=== PATIENT | female | born 1930 | race Caucasian/White ===

== ENCOUNTER 2020-10-17 20:52 | Emergency (ER) | payer MEDICARE, MEDICAID ==
[~2020-10-17] VITALS: Ht 134.6 cm; Wt 59.0 kg
[~2020-10-17 20:52] MED LIST: ACET-3161 PO; CLOP-31; CLOP-31 PO; FAMO-133; GABA100C PO; MECL-159 PO; OMEP20CA14; OMEP20TA2 PO; PLAVIX PO; SIMV5TAB58; TRAM50TA3
[2020-10-17 23:39] LABS: CLARITY URINE CLEAR (CLEAR); COLOR URINE YELLOW (YELLOW); KETONES URINE NEGATIVE (NEGATIVE); LEUKOCYTE ESTERASE URINE 2+ (NEGATIVE); NITRITE URINE NEGATIVE (NEGATIVE); OCCULT BLOOD URINE NEGATIVE (NEGATIVE); PH URINE 7.5 (4.5-8.0); PROTEIN URINE NEGATIVE (NEGATIVE); SPECIFIC GRAVITY URINE 1.011 (1.005-1.030)
[2020-10-17 23:40] LABS: CHLORIDE 102 mEq/L (98-107)
[2020-10-17 23:42] LABS: BASOPHILS % 0.5 % (0.0-2.0); EOSINOPHILS % 0.7 % (0.0-5.0); HEMATOCRIT. 36.9 % (36.0-48.0); HEMOGLOBIN. 12.4 g/dL (12.0-16.0); LYMPHOCYTES % 29.9 % (20.0-50.0); MEAN CORPUSCULAR HEMOGLOBIN 30.3 pg (28.0-32.0); MEAN CORPUSCULAR VOLUME 89.9 fL (81.0-99.0); MEAN PLATELET VOLUME 8.9 fl (7.4-10.4); MONOCYTES % 8.4 % (2.0-8.0); NEUTROPHILS % 60.5 % (40.0-76.0); PLATELET 347 x1000/uL (130-400); RED BLOOD CELL COUNT 4.11 mill/uL (4.2-5.4); RED CELL DISTRIBUTION WIDTH 14.7 % (11.6-14.6)
[2020-10-17 23:44] LABS: ETHANOL BLOOD < 10 mg/dL
[2020-10-18] MEDS ORDERED: POTASSIUM CHLORIDE 20MEQ TABLET SR PO ONE
[2020-10-18 00:22] LABS: OPIATES URINE SCREEN PRESUMTIVE POSITIVE (NEGATIVE)
[2020-10-18 00:23] LABS: *AMPHETAMINES SCREEN URINE NEGATIVE (NEGATIVE); CANNABINOID URINE SCREEN NEGATIVE (NEGATIVE); PHENCYCLIDINE URINE SCREEN NEGATIVE (NEGATIVE)
[2020-10-18 00:24] LABS: *BARBITURATES SCREEN URINE NEGATIVE (NEGATIVE); *BENZODIAZEPINES SCREEN URINE NEGATIVE (NEGATIVE); *COCAINE SCREEN URINE NEGATIVE (NEGATIVE); METHADONE URINE SCREEN NEGATIVE (NEGATIVE)
[2020-10-18 02:00] VITALS: BP 150/78
[2020-10-18] MEDS ORDERED: RISP05 MT (03:35)
== END 2020-10-18 03:45 | disposition home or self-care (01) ==
LOC: ER 20:52
DX: R44.0 Auditory hallucinations (principal); R03.0 Elevated blood-pressure reading, without diagnosis of hypertension; E78.5 Hyperlipidemia, unspecified; Z86.73 Personal history of transient ischemic attack (TIA), and cerebral infarction without residual deficits; Z79.899 Other long term (current) drug therapy
CPT/HCPCS: 36415; 80053; 80305; 80320; 81003; 82962; 84443; 85025; 99284; G0480

== ENCOUNTER 2022-01-14 12:29 | Inpatient (IN) | payer MEDICARE, OTHER ==
[~2022-01-14] VITALS: Ht 165.1 cm; Wt 54.1 kg
[~2022-01-14 12:29] MED LIST changes: -FAMO-133; +FAMO-287; -OMEP20TA2 PO; +OMEP20TA23 PO; +RISP05 MT
[2022-01-14] MEDS ORDERED: MORPHINE SULFATE 4 MG/ML CPJ (NOT FOR IM USE) IV NR (15:44)
[2022-01-14] MEDS ORDERED: MORPHINE SULFATE 4 MG/ML CPJ (NOT FOR IM USE) IV STA (15:44)
[2022-01-14] MEDS ORDERED: ONDANSETRON HCL 4MG/2ML INJ IV STA (15:44)
[2022-01-14] MEDS ORDERED: ONDANSETRON HCL 4MG/2ML INJ IV NR (15:44)
[2022-01-14] MEDS ORDERED: SODIUM CHLORIDE 0.9% 1,000 ML IV ONE (15:45)
[2022-01-14 17:30] LABS: HEMATOCRIT. 30.2 % (36.0-48.0); HEMOGLOBIN. 9.9 g/dL (12.0-16.0); MEAN CORPUSCULAR HEMOGLOBIN 30.9 pg (28.0-32.0); MEAN CORPUSCULAR VOLUME 94.2 fL (81.0-99.0); MEAN PLATELET VOLUME 8.1 fl (7.4-10.4); PLATELET 406 x1000/uL (130-400); RED BLOOD CELL COUNT 3.21 mill/uL (4.2-5.4); RED CELL DISTRIBUTION WIDTH 14.6 % (11.6-14.6)
[2022-01-14 17:37] LABS: CHLORIDE 99 mEq/L (98-107); PROTHROMBIN TIME 10.9 sec (9.6-11.0)
[2022-01-14 18:50] LABS: PLATELET ESTIMATE NORMAL
[2022-01-14] MEDS ORDERED: CEFTRIAXONE 1 G PREMIX 50 ML IV ONE (20:00)
[2022-01-14] MEDS ORDERED: AZITHROMYCIN 500MG/250ML 250 ML IV ONE (20:00)
[2022-01-14] MEDS ORDERED: AZITHROMYCIN 500MG/250ML 250 ML IV NR (22:30)
[2022-01-14] MEDS ORDERED: CEFTRIAXONE 1 G PREMIX 50 ML IV NR (22:30)
[2022-01-15] MEDS ORDERED: NALOXONE HCL 0.4MG/ML VIAL IV PRN (01:45)
[2022-01-15] MEDS: HYDROCODONE/ACETAMINOPHEN 10/325MG TABLET PO PRN (02:41)
[2022-01-15] MEDS ORDERED: ONDANSETRON HCL 4MG/2ML INJ IV PRN (08:30)
[2022-01-15 12:00] VITALS: BP 134/63
[2022-01-15 16:00] VITALS: BP 126/54
[2022-01-15 18:49] VITALS: BP 138/64
[2022-01-15] MEDS: ACETAMINOPHEN 325MG TABLET PO PRN (19:35)
[2022-01-15 20:00] VITALS: BP 120/43
[2022-01-15] MEDS ORDERED: CEFTRIAXONE 1 G PREMIX 50 ML IV SCH (21:00)
[2022-01-15] MEDS ORDERED: HALO2ORA3 MT (21:42)
[2022-01-15] MEDS ORDERED: HALOPERIDOL LACTATE 5MG/ML VIAL IM NR (22:15)
[2022-01-15 23:59] VITALS: BP 161/70
[2022-01-16 04:00] VITALS: BP 150/98
[2022-01-16 10:14] LABS: BASOPHILS % 0.1 % (0.0-2.0); EOSINOPHILS % 0.1 % (0.0-5.0); HEMATOCRIT. 25.5 % (36.0-48.0); HEMOGLOBIN. 8.5 g/dL (12.0-16.0); LYMPHOCYTES % 8.6 % (20.0-50.0); MEAN CORPUSCULAR HEMOGLOBIN 31.5 pg (28.0-32.0); MEAN CORPUSCULAR VOLUME 95.1 fL (81.0-99.0); MEAN PLATELET VOLUME 8.2 fl (7.4-10.4); MONOCYTES % 7.4 % (2.0-8.0); NEUTROPHILS % 83.8 % (40.0-76.0); PLATELET 317 x1000/uL (130-400); RED BLOOD CELL COUNT 2.69 mill/uL (4.2-5.4); RED CELL DISTRIBUTION WIDTH 14.2 % (11.6-14.6)
[2022-01-16 10:20] LABS: CHLORIDE 101 mEq/L (98-107)
[2022-01-16] MEDS ORDERED: LORAZEPAM 0.5MG TABLET PO PRN (11:45)
[2022-01-16] MEDS ORDERED: HALOPERIDOL LACTATE 5MG/ML VIAL IM NR (12:00)
[2022-01-16] MEDS ORDERED: VANCOMYCIN HCL 1 GM/VIAL ONE ×2 (14:27→14:28)
[2022-01-16] MEDS ORDERED: POLYMYXIN B SULFATE 500000 UNITS/VIAL ONE (14:27)
[2022-01-16] MEDS ORDERED: LIDOCAINE HCL/EPINEPHRINE 1%-EPI 1:100,000 20 ML VIAL ONE (14:28)
[2022-01-16] MEDS ORDERED: BUPIVACAINE HCL/PF 0.25% (2.5MG/ML) 10ML ONE (14:31)
[2022-01-16] MEDS ORDERED: DEXAMETHASONE 4MG/ML 1ML VIAL ONE (16:20)
[2022-01-16] MEDS ORDERED: CEFAZOLIN SODIUM 1000MG/VIAL ONE (16:20)
[2022-01-16] MEDS ORDERED: METOPROLOL TARTRATE 5MG/5ML VIAL IV ONE (17:12)
[2022-01-16] MEDS: METOPROLOL TARTRATE 5MG/5ML VIAL IV PRN ×4 (17:24→18:27)
[2022-01-16] MEDS ORDERED: MEPERIDINE HCL/PF 25MG/ML CPJ IV PRN (18:15)
[2022-01-16 20:00] VITALS: BP 152/50
[2022-01-16] MEDS ORDERED: MORPHINE SULFATE 2 MG/ML CPJ (NOT FOR IM USE) IV PRN (20:15)
[2022-01-16] MEDS: CEFTRIAXONE 1,000 MG in DEXTROSE 5% WATER 50 ML IV SCH (21:15)
[2022-01-16] MEDS: CEFAZOLIN 2,000 MG in DEXT 5% WATER 100 ML IV SCH (23:31)
[2022-01-17] VITALS: BP 83/63
[2022-01-17] MEDS: CEFAZOLIN 2,000 MG in DEXT 5% WATER 100 ML IV SCH ×3 (05:44→21:18)
[2022-01-17 12:43] LABS: HEMATOCRIT 23.3 % (36.0-48.0); HEMOGLOBIN 7.8 g/dL (12.0-16.0); MEAN CORPUSCULAR HEMOGLOBIN 31.7 pg (28.0-32.0); MEAN CORPUSCULAR VOLUME 94.3 fL (81.0-99.0); PLATELET 336 x1000/uL (130-400); RED BLOOD CELL COUNT 2.47 mill/uL (4.2-5.4); RED CELL DISTRIBUTION WIDTH 14.2 % (11.6-14.6)
[2022-01-17 12:57] LABS: CHLORIDE 101 mEq/L (98-107)
[2022-01-17] MEDS: DEXT 5%/0.45% NACL KCL 20MEQ/L 1,000 ML IV SCH (14:24)
[2022-01-17 20:00] VITALS: BP 154/62
[2022-01-17] MEDS: CEFTRIAXONE 1,000 MG in DEXTROSE 5% WATER 50 ML IV SCH (21:18)
[2022-01-17] MEDS: METOPROLOL TARTRATE 25MG TABLET PO SCH (21:19)
[2022-01-18] VITALS: BP 103/78
[2022-01-18] MEDS: DEXT 5%/0.45% NACL KCL 20MEQ/L 1,000 ML IV SCH ×2 (01:43→14:14)
[2022-01-18 04:00] VITALS: BP 120/76
[2022-01-18] MEDS: CEFAZOLIN 2,000 MG in DEXT 5% WATER 100 ML IV SCH ×3 (05:26→21:38)
[2022-01-18 08:00] VITALS: BP 158/67
[2022-01-18] MEDS: METOPROLOL TARTRATE 25MG TABLET PO SCH ×2 (08:10→21:48)
[2022-01-18 12:00] VITALS: BP 143/69
[2022-01-18] MEDS ORDERED: POTASSIUM CHLORIDE 20MEQ TABLET SR PO SCH (13:15)
[2022-01-18 16:00] VITALS: BP 146/59
[2022-01-18 17:53] LABS: EOSINOPHILS % 0.1 % (0.0-5.0); HEMATOCRIT. 21.2 % (36.0-48.0); HEMOGLOBIN. 7.1 g/dL (12.0-16.0); LYMPHOCYTES % 7.9 % (20.0-50.0); MEAN CORPUSCULAR HEMOGLOBIN 32.1 pg (28.0-32.0); MEAN CORPUSCULAR VOLUME 96.3 fL (81.0-99.0); MEAN PLATELET VOLUME 8.2 fl (7.4-10.4); MONOCYTES % 8.6 % (2.0-8.0); NEUTROPHILS % 83.4 % (40.0-76.0); PLATELET 287 x1000/uL (130-400)
[2022-01-18 18:22] LABS: CHLORIDE 103 mEq/L (98-107)
[2022-01-18 18:27] LABS: PHOSPHORUS 2.2 mg/dL (2.5-4.9)
[2022-01-18 20:00] VITALS: BP 150/74
[2022-01-18] MEDS: CEFTRIAXONE 1,000 MG in DEXTROSE 5% WATER 50 ML IV SCH (21:38)
[2022-01-19] VITALS: BP 141/59
[2022-01-19 04:00] VITALS: BP 155/60
[2022-01-19] MEDS: DEXT 5%/0.45% NACL KCL 20MEQ/L 1,000 ML IV SCH ×2 (05:43→17:43)
[2022-01-19 07:52] LABS: HEMATOCRIT 21.8 % (36.0-48.0); HEMOGLOBIN 7.1 g/dL (12.0-16.0); MEAN CORPUSCULAR HEMOGLOBIN 31.1 pg (28.0-32.0); MEAN CORPUSCULAR VOLUME 96.4 fL (81.0-99.0); PLATELET 285 x1000/uL (130-400); RED BLOOD CELL COUNT 2.27 mill/uL (4.2-5.4); RED CELL DISTRIBUTION WIDTH 14.3 % (11.6-14.6)
[2022-01-19 08:00] VITALS: BP 154/71
[2022-01-19] MEDS: METOPROLOL TARTRATE 25MG TABLET PO SCH ×2 (09:06→20:15)
[2022-01-19] MEDS: HYDROCODONE/ACETAMINOPHEN 10/325MG TABLET PO PRN ×2 (09:07→21:22)
[2022-01-19 12:00] VITALS: BP 131/56
[2022-01-19] MEDS ORDERED: POTASSIUM PHOS,M-BASIC-D-BASIC 20 MMOL in DEXT 5% WATER 243.3333 ML IV NR (14:00)
[2022-01-19 16:00] VITALS: BP 137/55
[2022-01-19 20:00] VITALS: BP 126/69
[2022-01-19] MEDS: CEFTRIAXONE 1,000 MG in DEXTROSE 5% WATER 50 ML IV SCH (21:12)
[2022-01-20] VITALS: BP 133/63
[2022-01-20 04:00] VITALS: BP 144/68
[2022-01-20] MEDS ORDERED: HYDROCODONE/ACETAMINOPHEN 10/325MG TABLET PO PRN (06:15)
[2022-01-20 08:00] VITALS: BP 133/62
[2022-01-20] MEDS: DEXT 5%/0.45% NACL KCL 20MEQ/L 1,000 ML IV SCH ×2 (09:06→20:29)
[2022-01-20] MEDS: METOPROLOL TARTRATE 25MG TABLET PO SCH ×2 (09:07→20:30)
[2022-01-20] MEDS: DOCUSATE SODIUM 250MG CAPSULE PO SCH ×2 (09:08→17:46)
[2022-01-20 12:00] VITALS: BP 142/61
[2022-01-20 12:14] LABS: BASOPHILS % 0.1 % (0.0-2.0); EOSINOPHILS % 1.5 % (0.0-5.0); HEMATOCRIT. 24.4 % (36.0-48.0); LYMPHOCYTES % 11.2 % (20.0-50.0); MEAN CORPUSCULAR HEMOGLOBIN 31.8 pg (28.0-32.0); MEAN CORPUSCULAR VOLUME 96.5 fL (81.0-99.0); MONOCYTES % 7.7 % (2.0-8.0); NEUTROPHILS % 79.5 % (40.0-76.0); PLATELET 280 x1000/uL (130-400); RED BLOOD CELL COUNT 2.52 mill/uL (4.2-5.4)
[2022-01-20 12:30] LABS: CHLORIDE 98 mEq/L (98-107)
[2022-01-20 12:36] LABS: PHOSPHORUS 2.1 mg/dL (2.5-4.9)
[2022-01-20] MEDS ORDERED: POTASSIUM PHOS,M-BASIC-D-BASIC 20 MMOL in DEXT 5% WATER 243.3333 ML IV NR (13:00)
[2022-01-20] MEDS: ACETAMINOPHEN 325MG TABLET PO PRN (15:45)
[2022-01-20 16:00] VITALS: BP 147/58
[2022-01-20 20:00] VITALS: BP 132/50
[2022-01-20] MEDS: CEFTRIAXONE 1,000 MG in DEXTROSE 5% WATER 50 ML IV SCH (20:30)
[2022-01-21] VITALS (7 sets, daily range): BP systolic 105–140; BP diastolic 58–80
[2022-01-21 06:15] LABS: BASOPHILS % 0.4 % (0.0-2.0); EOSINOPHILS % 2.1 % (0.0-5.0); HEMOGLOBIN. 8.4 g/dL (12.0-16.0); MEAN CORPUSCULAR HEMOGLOBIN 32.4 pg (28.0-32.0); MEAN CORPUSCULAR VOLUME 96.2 fL (81.0-99.0); MONOCYTES % 8.9 % (2.0-8.0); NEUTROPHILS % 73.6 % (40.0-76.0); PLATELET 255 x1000/uL (130-400); RED BLOOD CELL COUNT 2.59 mill/uL (4.2-5.4); RED CELL DISTRIBUTION WIDTH 13.9 % (11.6-14.6)
[2022-01-21] MEDS: METOPROLOL TARTRATE 25MG TABLET PO SCH (09:00)
[2022-01-21] MEDS: DOCUSATE SODIUM 250MG CAPSULE PO SCH ×2 (09:29→16:28)
[2022-01-21] MEDS: DEXT 5%/0.45% NACL KCL 20MEQ/L 1,000 ML IV SCH (09:29)
[2022-01-21] MEDS: ACETAMINOPHEN 325MG TABLET PO PRN (09:30)
[2022-01-21 09:54] LABS: CHLORIDE 94 mEq/L (98-107)
[2022-01-21] MEDS ORDERED: NALOXONE HCL 0.4MG/ML VIAL IV PRN (12:30)
[2022-01-21] MEDS: MORPHINE SULFATE 2 MG/ML CPJ (NOT FOR IM USE) IV PRN ×2 (12:35→19:03)
[2022-01-21] MEDS ORDERED: MIRTAZAPINE 15MG TABLET PO SCH (21:00)
== END 2022-01-21 20:30 | disposition home or self-care (01) | DRG 308 ==
LOC: ER 12:29 → MICUSO 19:38 → 6EST 01-15 12:16
PROVIDERS: ADMIT Internal Medicine; ATTEND Internal Medicine
PROC: 0QS706Z Reposition Left Upper Femur with Intramedullary Internal Fixation Device, Open Approach (ICD-10-PCS; principal; 2022-01-16)
DX: S72.142A Displaced intertrochanteric fracture of left femur, initial encounter for closed fracture (principal); E44.0 Moderate protein-calorie malnutrition; F03.90 Unspecified dementia, unspecified severity, without behavioral disturbance, psychotic disturbance, mood disturbance, and anxiety; E88.09 Other disorders of plasma-protein metabolism, not elsewhere classified; E83.39 Other disorders of phosphorus metabolism; D64.9 Anemia, unspecified; E78.00 Pure hypercholesterolemia, unspecified; E78.5 Hyperlipidemia, unspecified; Z20.822 Contact with and (suspected) exposure to COVID-19; E87.6 Hypokalemia; I10 Essential (primary) hypertension; M19.011 Primary osteoarthritis, right shoulder; F17.200 Nicotine dependence, unspecified, uncomplicated; R45.1 Restlessness and agitation; Z79.02 Long term (current) use of antithrombotics/antiplatelets; Z79.899 Other long term (current) drug therapy; Z85.038 Personal history of other malignant neoplasm of large intestine; Z86.73 Personal history of transient ischemic attack (TIA), and cerebral infarction without residual deficits; Z68.1 Body mass index [BMI] 19.9 or less, adult; W18.30XA Fall on same level, unspecified, initial encounter; Y93.89 Activity, other specified; Y92.009 Unspecified place in unspecified non-institutional (private) residence as the place of occurrence of the external cause; Y99.8 Other external cause status
CPT/HCPCS: 36415; 71045; 73501; 73502; 73552; 76000; 80048; 80053; 83605; 83880; 84100; 84484; 84550; 85025; 85027; 86850; 86900; 87426; 93005; 93306; 97161; 97162; 97165; 97166; 97530; 97535; 99285; C1713; J0456; J0690; J0696; J1100; J1630; J2175; J2270; J2405; J3370; J3490; J7030; J7060